=== PATIENT | male | born 1960 | race Caucasian/White ===

== ENCOUNTER 2016-11-09 17:51 | Emergency (ER) | payer BC ==
[~2016-11-09] VITALS: Ht 170.1 cm; Wt 81.6 kg
[2016-11-09] MEDS ORDERED: HYDR25T PO (18:06)
[2016-11-09] MEDS ORDERED: LISINOPRIL40 MG PO (18:06)
[2016-11-09] MEDS ORDERED: FENOFIBRATE130 M1 PO (18:07)
[2016-11-09] MEDS ORDERED: SILDENAFIL20 M1 PO (18:07)
[2016-11-09] MEDS ORDERED: LOTEMAX5 GM OP (18:07)
[2016-11-09 18:49] LABS: BASO # 0.1 10*3/uL (0.0-0.1); BASO % 1.2 % (0.0-1.0); EOS # 0.1 10*3/uL (0.0-0.4); EOS % 1.2 % (1.0-4.0); HEMATOCRIT 37.3 % (42.0-52.0); HEMOGLOBIN 12.5 g/dl (14.0-18.0); IG # 0.1 10*3/uL (0.0-0.1); LYMPH # 1.7 10*3/uL (1.3-4.4); LYMPH % 17.2 % (27.0-41.0); MEAN CORPUSCULAR HGB 31.5 pg (27.0-31.0); MEAN CORPUSCULAR HGB CONC 33.5 g/dl (33.0-37.0); MEAN PLATELET VOLUME 9.2 fl (9.6-12.3); MONO # 1.4 10*3/uL (0.1-1.0); MONO % 14.7 % (3.0-9.0); NEUT # 6.3 10*3/uL (2.3-7.9); NEUT % 65.2 % (47.0-73.0); PLATELET COUNT AUTOMATED 279 10*3/uL (130-400); RED BLOOD COUNT 3.97 10*6/uL (4.50-5.90); RED CELL DISTRI WIDTH 12.2 % (0-14.5); WHITE BLOOD COUNT 9.7 10*3/uL (4.8-10.8)
[2016-11-09 19:05] LABS: ALBUMIN 3.4 gm/dl (3.1-4.5); ALKALINE PHOSPHATASE 58 U/L (45-117); BILIRUBIN, TOTAL 0.3 mg/dl (0.2-1.0); BUN 14 mg/dl (7-24); CARBON DIOXIDE 25 mmol/L (21-32); CHLORIDE 106 mmol/L (98-107); EST GLOM FILT AFRICAN AMERICAN > 60 ml/min; GLUCOSE 145 mg/dL (65-99); POTASSIUM 3.9 mmol/L (3.5-5.1); SGOT/AST 34 IU/L (3-35); SGPT/ALT 42 U/L (12-78); SODIUM 144 mmol/L (136-145)
[2016-11-09] MEDS ORDERED: CYCLOBENZAPRINE10 MG PO (19:49)
[2016-11-09] MEDS ORDERED: HYDROCODONE BIT1 T11 PO (19:49)
== END 2016-11-09 20:51 | disposition home or self-care (01) ==
LOC: ED 17:51
PROVIDERS: Registered Nurse
DX: M79.652 Pain in left thigh (principal); W10.9XXA Fall (on) (from) unspecified stairs and steps, initial encounter; Y93.89 Activity, other specified; Y92.89 Other specified places as the place of occurrence of the external cause; Y99.9 Unspecified external cause status